=== PATIENT | female | born 1970 | race Caucasian/White ===

== ENCOUNTER → 2019-07-31 14:14 | Outpatient (BNVA) | payer MEDICARE, MEDICAID, SELFPAY | PROVIDERS: PCP Family Medicine; Visit Provider Family Medicine | DX: F15.11 Other stimulant abuse, in remission (principal); F41.8 Other specified anxiety disorders; F17.219 Nicotine dependence, cigarettes, with unspecified nicotine-induced disorders | CPT/HCPCS: 80307 ==